=== PATIENT | female | born 1975 | race American Indian/Alaskan Native ===

== ENCOUNTER 2021-12-01 23:08 | Emergency (ER) | payer OTHER ==
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
[2021-12-02 09:00] VITALS: BP 161/83
== END 2021-12-02 09:11 | disposition home or self-care (01) ==
LOC: ED 23:08
DX: M54.2 Cervicalgia (principal); M54.9 Dorsalgia, unspecified; V89.2XXA Person injured in unspecified motor-vehicle accident, traffic, initial encounter; Y93.89 Activity, other specified; Y92.89 Other specified places as the place of occurrence of the external cause; Y99.8 Other external cause status
CPT/HCPCS: 99282